=== PATIENT | male | born 1975 | race Caucasian/White ===

== ENCOUNTER 2018-07-14 10:26 | Observation (INO) | payer OTHER ==
[~2018-07-14] VITALS: Ht 177.8 cm; Wt 81.3 kg
[~2018-07-14 10:26] MED LIST: DIAZ10 PO; IBUP400 PO; RXCODACET PO; TOBR.3OPSO OP
[2018-07-14 11:14] LABS: BASOPHILS ABSOLUTE AUTO 0.08 K/mm3 (0.00-0.23); BASOPHILS PERCENT AUTO 1 % (0-2); EOSINOPHILS ABSOLUTE AUTO 0.24 K/mm3 (0.00-0.68); EOSINOPHILS PERCENT AUTO 3 % (0-6); Hemoglobin 15.7 g/dL (13.5-17.5); IMMATURE GRAN ABSOLUTE AUTO 0.05 K/mm3 (0.00-0.10); IMMATURE GRAN PERCENT AUTO 1 % (0-1); LYMPHOCYTES ABSOLUTE AUTO 2.47 K/mm3 (0.84-5.20); LYMPHOCYTES PERCENT AUTO 26 % (21-46); MONOCYTES ABSOLUTE AUTO 0.54 K/mm3 (0.16-1.47); MONOCYTES PERCENT AUTO 6 % (4-13); Mean Corpuscular HGB 29.9 pg (26.0-34.0); Mean Corpuscular HGB Conc 34.1 g/dL (31.5-36.5); Mean Corpuscular Volume 88 fL (80-100); Mean Platelet Volume 10.4 fL (9.1-12.4); NEUTROPHILS ABSOLUTE AUTO 6.32 K/mm3 (1.96-9.15); NEUTROPHILS PERCENT AUTO 65 % (41-73); Platelet Count 252 K/mm3 (150-400); RDW Coefficient Variation 12.1 % (11.7-14.2); RDW Standard Deviation 39.1 fL (35.1-46.3); Red Blood Cell Count 5.25 M/mm3 (4.30-5.90)
[2018-07-14 11:35] LABS: Alanine Aminotransfer (ALT/SGP 240 U/L (12-78); Albumin, Blood 4.2 g/dL (3.4-5.0); Albumin/Globulin Ratio 1.2 (0.8-1.8); Alk Phos 84 U/L (50-136); Anion Gap 8 mmol/L (6-16); Aspartate Aminotrans (AST/SGOT 88 U/L (12-37); Bilirubin, Total 0.6 mg/dL (0.1-1.0); Blood Urea Nitrogen 12 mg/dL (8-24); Bun/Creatinine Ratio 11.1 (12.0-20.0); CO2, Blood 26 mmol/L (21-32); Calcium, Blood 8.3 mg/dL (8.5-10.1); Chloride, Blood 107 mmol/L (98-108); Creatinine, Blood 1.08 mg/dL (0.60-1.20); Globulin, Blood 3.5 g/dL (2.2-4.0); Glomerular Filtration Rate >60 (60-); Glucose, Blood 116 mg/dL (70-99); Potassium, Blood 3.7 mmol/L (3.5-5.5); Sodium, Blood 141 mmol/L (136-145); Total Protein, Blood 7.7 g/dL (6.4-8.2)
--- NOTE | 2018-07-14 15:05 | NUR ---
PATIENT ADMITT THE PATIENT WAS ADMITTED TO THE MED FLOOR, AWAITING AN EGD THIS AFTERNOON. THE SAW DR. PAT IN THE ER AND WILL BE AN ADD ON CASE FOR HIM. THE PATIENT REACHED THE FLOOR AT 1340 AND HIS ADMISSION WAS COMPLETED AT THAT TIME. WILL CONTINUE TO MONITOR.
--- NOTE | 2018-07-14 15:22 | NUR ---
FROM [facility] FLOOR ROOM 361 WITH RN TO [facility]. ADMISSION STARTED TO UNIT
--- NOTE | 2018-07-14 15:23 | NUR ---
History, Chart, Medications and Allergies reviewed before start of procedure.Lungs clear T/O to Auscultation. Patient confirms NPO status and agrees with scheduled surgery.
--- NOTE | 2018-07-14 15:49 | NUR ---
07/14/18 1549 Jignesh Hurst Bite Block PlacedPATIENT DETERMINED TO BE ASA APPROPRIATE FOR PROPOFOL SEDATION PRIOR TO START OF PROCEDURE BY 3-LEAD EKG REVIEWED WITH PHYSICIAN PRIOR TO START OF PROCEDURE.History, Chart, Medications and Allergies reviewed before start of procedure.LUNGS CLEAR T/O TO AUSCULTATION.MONITOR INTACT WITH CONTINUOUS PULSE OXIMETRY AND INTERMITTENT BP.O2 VIA N/C INTACT THROUGHOUT SEDATION/PROCEDURE.
--- NOTE | 2018-07-14 16:56 | NUR ---
PATIENT RETURN THE PATIENT RETURNED FROM HIS PRECEDURE AT 1630, AFTER REPORT WAS CALLED UP FROM PACU. THE PATIENT IS A&O X4 AND HIS DIET HAS BEEN RAISE TO CLEAR LUQUIDS.
--- NOTE | 2018-07-14 17:48 | NUR ---
SHIFT SUMMARY THE PATIENT WAS ADMITTED FOR AN EGD THAT WAS PREFORMED THIS AFTERNOON, THEN BROUGHT BACK TO THE FLOOR. THE PATIENT'S PROVIDER HAS DECIDED TO KEEP THE PATIENT OVERNIGHT BECAUSE OF ELEVATED AST AND ALT. THE PATIENT IS RESTING IN HIS ROOM AT THIS TIME, VISITING WITH HIS FAMILY, WILL CONTINUE TO MONITOR
[2018-07-15 04:56] LABS: BASOPHILS ABSOLUTE AUTO 0.06 K/mm3 (0.00-0.23); BASOPHILS PERCENT AUTO 1 % (0-2); EOSINOPHILS ABSOLUTE AUTO 0.14 K/mm3 (0.00-0.68); EOSINOPHILS PERCENT AUTO 1 % (0-6); Hematocrit 43.5 % (37.0-53.0); Hemoglobin 14.5 g/dL (13.5-17.5); IMMATURE GRAN ABSOLUTE AUTO 0.04 K/mm3 (0.00-0.10); IMMATURE GRAN PERCENT AUTO 0 % (0-1); LYMPHOCYTES ABSOLUTE AUTO 1.86 K/mm3 (0.84-5.20); LYMPHOCYTES PERCENT AUTO 17 % (21-46); MONOCYTES ABSOLUTE AUTO 0.65 K/mm3 (0.16-1.47); MONOCYTES PERCENT AUTO 6 % (4-13); Mean Corpuscular HGB 30.3 pg (26.0-34.0); Mean Corpuscular HGB Conc 33.3 g/dL (31.5-36.5); Mean Platelet Volume 10.4 fL (9.1-12.4); NEUTROPHILS ABSOLUTE AUTO 8.31 K/mm3 (1.96-9.15); NEUTROPHILS PERCENT AUTO 75 % (41-73); Platelet Count 214 K/mm3 (150-400); RDW Coefficient Variation 12.2 % (11.7-14.2); RDW Standard Deviation 40.6 fL (35.1-46.3); Red Blood Cell Count 4.78 M/mm3 (4.30-5.90); White Blood Cell Count 11.06 K/mm3 (4.00-11.30)
[2018-07-15 04:57] LABS: Mean Corpuscular Volume 91 fL (80-100)
--- NOTE | 2018-07-15 05:02 | NUR ---
SHIFT SUMMARY NO ACUTE CHANGES. PT HAD CLEAR LIQUIDS THROUGHOUT THE NIGHT. TOLERATED WELL. NO COMPLAINTS OF PAIN. SWALLOWED PILLS WHOLE WITH WATER W/ NO PROBLEMS. PT AWAITING D/C TO HOME, HOPING TO BE DISCHARGED EARLY. RESTING IN BED. VSS. WILL REPORT TO DAY RN.
[2018-07-15 05:30] LABS: Alanine Aminotransfer (ALT/SGP 147 U/L (12-78); Albumin, Blood 3.4 g/dL (3.4-5.0); Albumin/Globulin Ratio 1.1 (0.8-1.8); Alk Phos 73 U/L (50-136); Anion Gap 6 mmol/L (6-16); Aspartate Aminotrans (AST/SGOT 44 U/L (12-37); Blood Urea Nitrogen 9 mg/dL (8-24); Bun/Creatinine Ratio 8.9 (12.0-20.0); CO2, Blood 29 mmol/L (21-32); Calcium, Blood 7.9 mg/dL (8.5-10.1); Chloride, Blood 107 mmol/L (98-108); Creatinine, Blood 1.01 mg/dL (0.60-1.20); Glomerular Filtration Rate >60 (60-); Glucose, Blood 101 mg/dL (70-99); Magnesium, Blood 2.1 mg/dL (1.6-2.4); Potassium, Blood 3.8 mmol/L (3.5-5.5); Sodium, Blood 142 mmol/L (136-145); Total Protein, Blood 6.4 g/dL (6.4-8.2)
[2018-07-15] MEDS ORDERED: Omeprazole20 M1 PO (12:16)
[2018-07-15] MEDS ORDERED: DIAZ2 PO (12:17)
[2018-07-15] MEDS ORDERED: HYOS.125 PO (12:18)
--- NOTE | 2018-07-15 12:51 | NUR ---
PATIENT DISCHARGE THE PATIENT WAS DISCHARGED HOME AFTER DISCHARGE INSTRUCTIONS WERE GIVEN TO THE PATIENT. THE PATIENT WAS INSTRUCTED TO FOLLOW UP WITH DR. SAMANIEGO IN 4 WEEKS AND TO FREIGHT RATE ANALYST HIS PRESCRIPTIONS AT HIS PHARMACY. THE PATIENT ELECTED TO WALK OUT OF THE HOSPITAL. THE PATIENT LEFT WITHOUT CONCERN OR COMPLAINT.
== END 2018-07-15 12:38 | disposition home or self-care (01) ==
LOC: ER 10:26 → MEDS 10:27
PROVIDERS: Emergency Medicine; Student in an Organized Health Care Education/Training Program; ADMIT Internal Medicine
PROC: 0DB38ZX Excision of Lower Esophagus, Via Natural or Artificial Opening Endoscopic, Diagnostic (ICD-10-PCS; principal; 2018-07-14 16:00)
PROC: 0DB28ZX Excision of Middle Esophagus, Via Natural or Artificial Opening Endoscopic, Diagnostic (ICD-10-PCS; principal; 2018-07-14 16:00)
DX: K22.2 Esophageal obstruction (principal); K22.10 Ulcer of esophagus without bleeding; R79.89 Other specified abnormal findings of blood chemistry; F41.9 Anxiety disorder, unspecified; Z87.891 Personal history of nicotine dependence; Z88.0 Allergy status to penicillin
CPT/HCPCS: 36415; 80053; 83735; 84443; 85025; 88305; 88312; 96361; 96374; 96375; 99284-25; C1726; C9113; G0378; J2250; J2405; J7030; J7120

== ENCOUNTER 2019-08-01 06:43 | Day surgery (SDC) | payer OTHER ==
[~2019-08-01] VITALS: Ht 180.3 cm; Wt 86.0 kg
[~2019-08-01 06:43] MED LIST changes: +DIAZ2 PO; +HYOS.125 PO; +Omeprazole20 M1 PO
== END 2019-08-01 08:44 | disposition home or self-care (01) ==
LOC: ORSCSDS 06:43
PROVIDERS: Internal Medicine Gastroenterology
PROC: 0DB18ZX Excision of Upper Esophagus, Via Natural or Artificial Opening Endoscopic, Diagnostic (ICD-10-PCS; principal; 2019-08-01 08:00)
PROC: 0DB38ZX Excision of Lower Esophagus, Via Natural or Artificial Opening Endoscopic, Diagnostic (ICD-10-PCS; principal; 2019-08-01 08:00)
PROC: 0D757ZZ Dilation of Esophagus, Via Natural or Artificial Opening (ICD-10-PCS; principal; 2019-08-01 08:00)
DX: R13.10 Dysphagia, unspecified (principal); K20.0 Eosinophilic esophagitis; K22.2 Esophageal obstruction; Z87.891 Personal history of nicotine dependence; Z79.899 Other long term (current) drug therapy
CPT/HCPCS: 88305; J0330; J0461; J2250; J2405; J2704; J7120

== ENCOUNTER 2021-05-16 00:12 | Emergency (ER) | payer OTHER ==
[~2021-05-16] VITALS: Ht 177.8 cm; Wt 77.1 kg
[2021-05-16 01:02] LABS: BASOPHILS ABSOLUTE AUTO 0.06 K/mm3 (0.00-0.23); BASOPHILS PERCENT AUTO 1 % (0-2); EOSINOPHILS ABSOLUTE AUTO 0.06 K/mm3 (0.00-0.68); EOSINOPHILS PERCENT AUTO 1 % (0-6); Hematocrit 46.1 % (37.0-53.0); Hemoglobin 15.9 g/dL (13.5-17.5); IMMATURE GRAN ABSOLUTE AUTO 0.04 K/mm3 (0.00-0.10); IMMATURE GRAN PERCENT AUTO 0 % (0-1); LYMPHOCYTES ABSOLUTE AUTO 1.69 K/mm3 (0.84-5.20); LYMPHOCYTES PERCENT AUTO 16 % (21-46); MONOCYTES ABSOLUTE AUTO 0.46 K/mm3 (0.16-1.47); MONOCYTES PERCENT AUTO 4 % (4-13); Mean Corpuscular HGB 29.8 pg (26.0-34.0); Mean Corpuscular HGB Conc 34.5 g/dL (31.5-36.5); Mean Corpuscular Volume 87 fL (80-100); Mean Platelet Volume 10.3 fL (9.1-12.4); NEUTROPHILS ABSOLUTE AUTO 8.19 K/mm3 (1.96-9.15); NEUTROPHILS PERCENT AUTO 78 % (41-73); Platelet Count 266 K/mm3 (150-400); RDW Coefficient Variation 12.9 % (11.7-14.2); RDW Standard Deviation 40.4 fL (35.1-46.3); Red Blood Cell Count 5.33 M/mm3 (4.30-5.90)
[2021-05-16 01:20] LABS: Anion Gap 7 mmol/L (6-16); Blood Urea Nitrogen 9 mg/dL (8-24); Bun/Creatinine Ratio 8.8 (12.0-20.0); CO2, Blood 25 mmol/L (21-32); Calcium, Blood 9.1 mg/dL (8.5-10.1); Chloride, Blood 108 mmol/L (98-108); Creatinine, Blood 1.02 mg/dL (0.60-1.20); Glomerular Filtration Rate >60 (60-); Glucose, Blood 96 mg/dL (70-99); Sodium, Blood 140 mmol/L (136-145)
[2021-05-16 04:06] LABS: Influenza A, PCR NEGATIVE (NEGATIVE); Influenza B, PCR NEGATIVE (NEGATIVE); Resp Syncytial Virus, PCR NEGATIVE (NEGATIVE); SARS-Cov-2 (COVID-19) PCR, MMC NEGATIVE (NEGATIVE)
[2021-05-16] MEDS ORDERED: BENADRYL25 M1 PO (04:41)
--- NOTE | 2021-05-16 04:43 | NUR ---
PT ARRIVES FROM ER, AWAKE ALERT. PT'S MOTHER WITH PT. Ambulatory in Day Surgery. History, Chart, Medications and Allergies reviewed before start of procedure. Lungs clear T/O to Auscultation. Patient confirms NPO status and agrees with scheduled surgery. Patient States Post-Procedure ride home has been arranged.
--- NOTE | 2021-05-16 04:44 | NUR ---
05/16/21 0444 Selena Mcclain History, Chart, Medications and Allergies reviewed before start of procedure. Patient confirms NPO status and agrees with scheduled surgery. 3-LEAD EKG REVIEWED WITH PHYSICIAN PRIOR TO START OF PROCEDURE. MONITOR INTACT WITH CONTINUOUS PULSE OXIMETRY AND INTERMITTENT BP. PATIENT DETERMINED TO BE ASA APPROPRIATE FOR PROPOFOL SEDATION PRIOR TO START OF PROCEDURE BY . Bite Block Placed AND REMOVED AT END OF CASE.
--- NOTE | 2021-05-16 06:38 | NUR ---
Discharge instructions reviewed with patient. Patient verbalizes understanding. Copy given to patient to take home.Ambulatory in Day Surgery Patient States Post-Procedure ride home has been arranged. Discharged via wheelchair to private car for ride home. PT STABLE DENIES PAIN OR ANY NEEDS PT READY TO DC HOME
== END 2021-05-16 04:22 | disposition home or self-care (01) ==
LOC: ER 00:12
PROVIDERS: Student in an Organized Health Care Education/Training Program
DX: T18.128A Food in esophagus causing other injury, initial encounter (principal); K20.0 Eosinophilic esophagitis; K22.2 Esophageal obstruction; K44.9 Diaphragmatic hernia without obstruction or gangrene; Z88.0 Allergy status to penicillin
CPT/HCPCS: 0241U; 36415; 80048; 83735; 85025; 96374; 96375; C1726; C9113; J1100; J2250; J2704; J2765; J7030; J7120

== ENCOUNTER 2023-03-13 19:42 | Emergency (ER) | payer OTHER ==
[~2023-03-13] VITALS: Ht 180.3 cm; Wt 95.2 kg
[~2023-03-13 19:42] MED LIST changes: +BENADRYL25 M1 PO
[2023-03-13 19:58] VITALS: BP 103/73
== END 2023-03-13 22:21 | disposition home or self-care (01) ==
LOC: ER 19:42
DX: S82.64XA Nondisplaced fracture of lateral malleolus of right fibula, initial encounter for closed fracture (principal); K21.9 Gastro-esophageal reflux disease without esophagitis; W01.0XXA Fall on same level from slipping, tripping and stumbling without subsequent striking against object, initial encounter; Z88.0 Allergy status to penicillin
CPT/HCPCS: 29515; 73610; 99283-25; A9270; J1885